=== PATIENT | male | born 1945 | race African-American/Black ===

== ENCOUNTER 2018-05-25 15:27 | Emergency (ER) | payer OTHER ==
--- NOTE | 2018-05-25 15:52 | ED Physician Documentation ---
PD HPI FOCAL NEURO - Stated complaint Stated Complaint: STROKE LIKE SX - Chief complaint Chief Complaint: Neuro - History obtained from History obtained from: Patient, Family () - History of Present Illness Timing - onset: Today (This is a 72-year-old gentleman who presents with by private vehicle with strokelike symptoms, he says it probably started around noon but the says that he was mumbling and talking funny and had difficulty eating much earlier, maybe at 9 or 930 this morning plus he was not sleeping well last night. He is having some difficulty talking but no other specific complaints, although the history is limited because of his difficulty talking. The had noted anything that I did not note, specifically difficulty talking and a right facial droop. The patient denies a headache. He has no history of stroke. He does have a history of diabetes and takes insulin at night, his blood sugar here was 190) Review of Systems Ten Systems: 10 systems reviewed and negative Constitutional: denies: Fever, Chills Cardiac: denies: Chest pain / pressure, Palpitations Respiratory: denies: Dyspnea, Cough GI: denies: Abdominal Pain PD PAST MEDICAL HISTORY - Past Medical History Past Medical History: Yes Endocrine/Autoimmune: Type 2 diabetes - Present Medications Home Medications: Ambulatory Orders Medication Instructions Recorded Confirmed Aspirin [Aspirin EC] 81 mg PO DAILY 05/25/18 05/25/18 Insulin NPH Human Isophane 68 units SUBQ QPM 05/25/18 05/25/18 [Humulin N] Linagliptin [Tradjenta] 5 mg PO DAILY 05/25/18 05/25/18 Lisinopril 40 mg PO DAILY 05/25/18 05/25/18 Metformin HCl 1,000 mg PO BIDWM 05/25/18 05/25/18 Metformin HCl 500 mg PO 1200 05/25/18 05/25/18 Sildenafil Citrate [Sildenafil] 20 mg PO DAILY PRN 05/25/18 05/25/18 - Allergies Allergies/Adverse Reactions: Allergies Allergy/AdvReac Type Severity Reaction Status Date / Time No Known Drug Allergies Allergy Verified 05/25/18 16:37 - Living Situation Living Situation: reports: With spouse/s.o. - Social History Does the pt smoke?: No Does the pt drink ETOH?: No Does the pt have substance abuse?: No - Family History Family history: reports: Non contributory PD ED PE NORMAL - Vitals Vital signs reviewed: Yes - General General: Alert and oriented X 3, No acute distress, Well developed/nourished - HEENT HEENT: PERRL, EOMI - Neck Neck: Supple, no meningeal sign, No bony TTP - Cardiac Cardiac: RRR, No murmur - Respiratory Respiratory: No respiratory distress, Clear bilaterally - Abdomen Abdomen: Normal bowel sounds, Soft, Non tender - Back Back: No CVA TTP, No spinal TTP - Derm Derm: Normal color, Warm and dry - Extremities Extremities: No edema, No calf tenderness / cord - Neuro Neuro: Alert and oriented X 3, Normal speech NIHSS - Time Time: 15:40 - Level of Consciousness Level of consciousness: (0) Alert, Keenly responsive LOC Questions: (0) Answers both Q's correct LOC Commands: (0) Performs both correctly - Gaze Best Gaze: (0) Normal - Visual Visual: (0) No loss - Facial Palsy Facial Palsy: (1) Minor paralysis (Right) - Motor Arms (both separate) Motor Arm (right): (0) No drift Motor Arm (left): (0) No drift - Motor Legs (both separate) Motor Leg (right): (0) No drift Motor Leg (left): (0) No drift - Limb Ataxia Limb Ataxia: (0) Absent - Sensory Sensory: (0) Normal - Best Language Best Language: (1) [id number] - Dysarthria Dysarthria: (0) Normal - Extinction and Inattention (formally neg Extinction and inattention: (0) No abnormality - Total Score/Results Total Score/Result: 2 Results - Vitals Vitals: Vital Signs - 24 hr 05/25/18 05/25/18 15:36 16:31 Temperature 98.7 C H Heart Rate 94 87 Respiratory 18 26 H Rate Blood Pressure 167/87 H 155/90 H O2 Saturation 96 98 Oxygen O2 Source Room air - EKG (time done) 1618 Rate: Rate (enter#) (79) Rhythm: NSR [place]: Normal Intervals: Normal ME QRS: LVH Ischemia: Non specific changes Computer interpretation: Agree with computer - Labs Labs: Laboratory Tests 05/25/18 05/25/18 05/25/18 15:35 15:35 15:35 WBC 5.3 RBC 4.94 Hgb 13.9 L Hct 43.0 MCV 87.1 MCH 28.2 MCHC 32.4 RDW 14.2 Plt Count 160 MPV 8.8 Neut # (Auto) 3.9 Lymph # (Auto) 0.9 L Jenkins # (Auto) 0.5 Eos # (Auto) 0.0 Baso # (Auto) 0.0 Absolute Nucleated RBC 0.00 Nucleated RBC % 0.0 PT 11.8 INR 1.0 Sodium 136 Potassium 4.1 Chloride 103 Carbon Dioxide 25 Anion Gap 8.0 BUN 13 Creatinine 0.9 Estimated GFR (MDRD) 101 Glucose 196 H POC Whole Bld Glucose Calcium 9.4 Total Bilirubin 0.8 AST 27 ALT 28 Alkaline Phosphatase 45 Total Protein 7.7 Albumin 4.3 Globulin 3.4 Albumin/Globulin Ratio 1.3 Lipase 49 05/25/18 15:43 WBC RBC Hgb Hct MCV MCH MCHC RDW Plt Count MPV Neut # (Auto) Lymph # (Auto) Jenkins # (Auto) Eos # (Auto) Baso # (Auto) Absolute Nucleated RBC Nucleated RBC % PT INR Sodium Potassium Chloride Carbon Dioxide Anion Gap BUN Creatinine Estimated GFR (MDRD) Glucose POC Whole Bld Glucose 196 H Calcium Total Bilirubin AST ALT Alkaline Phosphatase Total Protein Albumin Globulin Albumin/Globulin Ratio Lipase - Rads (name of study) CT Head Radiology: EMP read contemporaneously (normal) CTA Head Radiology: EMP read contemporaneously (Left M2 MCA thrombus is seen) PD MEDICAL DECISION MAKING - ED course ED course: Initially the time of onset was in question, he said 12 PM but the said probably as early as 9 AM, when asked about this the patient agreed it was probably 9 AM. Spoke with Meño Suarez, Stroke neurology at [facility] who will view the images but did not recommend TPA given the time course and low stroke scale. He called back after viewing the images and felt there was no large vessel occlusion and I spoke with Dr. Wynn for observation at 4:39 PM and aspirin was ordered. However the neuroradiologist felt there was a left M2 MCA occlusion that might be intervene able and I spoke with Dr. Suarez again who accepts him to [facility] for evaluation. - Sepsis Event Vital Signs: Vital Signs - 24 hr 05/25/18 05/25/18 15:36 16:31 Temperature 98.7 C H Heart Rate 94 87 Respiratory 18 26 H Rate Blood Pressure 167/87 H 155/90 H O2 Saturation 96 98 Oxygen O2 Source Room air Departure - Departure Disposition: 02 Transfer Acute Care Hosp Clinical Impression: Cerebrovascular accident (CVA) Qualifiers: CVA mechanism: unspecified Qualified Code(s): I63.9 - Cerebral infarction, unspecified Condition: Serious
[2018-05-25 15:57] LABS: BASOPHILS % (AUTO) 0.3 %; EOSINOPHILS % (AUTO) 0.9 %; HGB - HEMOGLOBIN 13.9 g/dL (14.0-18.0); LYMPHOCYTES # (AUTO) 0.9 10^3/uL (1.5-3.5); LYMPHOCYTES % (AUTO) 17.1 %; MEAN CORPUSCULAR HEMOGLOBIN 28.2 pg (27.0-31.0); MEAN CORPUSCULAR HGB CONC 32.4 g/dL (32.0-36.0); MEAN CORPUSCULAR VOLUME 87.1 fL (80.0-94.0); MEAN PLATELET VOLUME 8.8 fL (7.4-11.4); MONOCYTES # (AUTO) 0.5 10^3/uL (0.0-1.0); MONOCYTES % (AUTO) 8.9 %; NEUTROPHILS # (AUTO) 3.9 10^3/uL (1.5-6.6); NEUTROPHILS % (AUTO) 72.8 %; PLT - PLATELET COUNT 160 10^3/uL (130-450); RED BLOOD COUNT 4.94 10^6/uL (4.70-6.10); RED CELL DISTRIBUTION WIDTH 14.2 % (12.0-15.0); WHITE BLOOD COUNT 5.3 x10^3/uL (4.8-10.8)
[2018-05-25 16:03] LABS: PT - PROTHROMBIN TIME 11.8 secs (9.9-12.6)
[2018-05-25 16:07] LABS: ALBUMIN 4.3 g/dL (3.2-5.5); ALBUMIN/GLOBULIN RATIO 1.3 (1.0-2.2); BILIRUBIN,TOTAL 0.8 mg/dL (0.2-1.0); CALCIUM 9.4 mg/dL (8.5-10.3); CREATININE 0.9 mg/dL (0.6-1.2); TOTAL PROTEIN 7.7 g/dL (6.7-8.2)
[2018-05-25] MEDS ORDERED: IOPAMIDOL-300 100 ML VIAL IVP ONE (16:10)
[2018-05-25] MEDS ORDERED: IOPAMIDOL-300 100 ML VIAL ONE (16:14)
--- NOTE | 2018-05-25 16:22 | CT Report ---
Procedure Date: 05/25/2018 Accession Number: [id number] / [id number] Procedure: CT - Head W/O Stroke Protocol CPT Code: FULL RESULT: EXAM: CT HEAD EXAM DATE: 05/25/2018 03:52 PM. CLINICAL HISTORY: CVA. COMPARISON: None. TECHNIQUE: Multiaxial CT images were obtained from the foramen magnum to the vertex. Reformats: Sagittal and coronal. IV contrast: None. In accordance with CT protocol optimization, one or more of the following dose reduction techniques were utilized for this exam: automated exposure control, adjustment of mA and/or KV based on patient size, or use of iterative reconstructive technique. FINDINGS: Parenchyma: No intraparenchymal hemorrhage. No evidence of mass, midline shift, or CT findings of acute infarction. Marcos-white differentiation is distinct. Extraaxial Spaces: Normal for age. No subdural or epidural collections identified. Ventricles: Normal in size and position. Sinuses and Orbits: Imaged paranasal sinuses, orbits, and mastoids show no significant abnormality. Bones: No evidence of fracture or calvarial defect. Other: None. IMPRESSION: No evidence of acute intracranial process. RADIA The above findings were discussed with Dr. Antonio Day by Dr. Juan Abreu at 16:19 hrs on 05/25/18.
[2018-05-25] MEDS ORDERED: ASPIRIN CHEW 81 MG TABLET PO STA (16:37)
--- NOTE | 2018-05-25 17:08 | CT Report ---
Procedure Date: 05/25/2018 Accession Number: [id number] / [id number] Procedure: CT - Neck Angio CPT Code: FULL RESULT: EXAM: CT ANGIOGRAM HEAD AND NECK. POSTCONTRAST CT HEAD: EXAM DATE:05/25/2018 04:12 PM. CLINICAL HISTORY:Stroke. COMPARISON:Prior unenhanced CT head performed earlier today. TECHNIQUE: Routine axial helical CTA imaging was performed from the aortic arch through the [place]. Postcontrast axial imaging through the head was performed. Reconstructions: Routine multiplanar 3D MIP reconstructions. IV contrast: 100 cc Isovue-300. NASCET Criteria are used for stenosis measurements. In accordance with CT protocol optimization, one or more of the following dose reduction techniques were utilized for this exam: automated exposure control, adjustment of mA and/or KV based on patient size, or use of iterative reconstructive technique. Findings: Relevant images are indicated (image number, series number). Postcontrast CT head: No abnormal enhancement of the brain, meninges. CT angiogram head: Left ICA: Patent to the terminus. Patent M1 segment MCA, 5 mm clot seen single branch M2 sylvian branch (141, 9) at a bifurcation point, may be nearly occlusive/or occlusive (49, 15), with contrast in the remaining M2 and distal MCA branches. No other area of clot seen. Patent MIA. Right ICA: Patent including MCA, MIA Posterior circulation: Patent distal bilateral vertebral arteries, basilar artery, patent bilateral [employer]. Patent major draining veins. CT angiogram neck: Aortic arch: Patent with minimal atherosclerotic disease. Normal configuration of the great vessels. Left carotid artery: Widely patent. Right carotid artery: Widely patent. Left vertebral artery: Widely patent. Right vertebral artery: Widely patent. Limited evaluation of the upper lungs are clear. Soft tissue structures of the neck demonstrate mild thyromegaly, airway patent. Multilevel advanced cervical spondylosis mid lower cervical spine levels present. No suspicious bony lesions. Impressions: Postcontrast CT head: 1. No abnormal enhancement. CT angiogram head: 1. Left ICA: There is a 5 mm nearly occlusive/or occlusive clot seen single branch M2 at a bifurcation point, remaining MCA opacifies suggesting collateral filling. No other clots seen. Patent MIA. 2. Right ICA: Patent. 3. Posterior circulation: Patent. 4. Patent major draining veins. CT angiogram neck: 1. Patent aortic arch, bilateral carotid and vertebral arteries. No aneurysm, dissection, stenosis, or AVM. 2. Mild thyromegaly, airway patent. 3. Advanced multilevel cervical spondylosis. Critical results: Findings discussed immediately with Dr. Day by phone on 05/25/2018 at 1649 hrs. RADIA
[2018-05-25 17:34] VITALS: BP 156/82
== END 2018-05-25 17:49 | disposition short-term general hospital (02) ==
LOC: ED 15:27
DX: I63.9 Cerebral infarction, unspecified (principal); R94.31 Abnormal electrocardiogram [ECG] [EKG]; E11.9 Type 2 diabetes mellitus without complications; Z79.4 Long term (current) use of insulin
CPT/HCPCS: 36415; 70450; 70496; 70498; 80053; 83690; 85025; 85610; 93005; 99284; 99285; A9270; Q9967